=== PATIENT | female | born 1975 ===

== ENCOUNTER 2019-02-22 07:34 | Outpatient (CLI) | payer BC | END 2019-02-22 23:59 | disposition home or self-care (01) | LOC: ROC 07:34 | PROVIDERS: ATTEND Radiology Radiation Oncology | DX: D35.2 Benign neoplasm of pituitary gland (principal) | CPT/HCPCS: 99204; G0463 ==

== ENCOUNTER 2019-03-06 09:23 | Outpatient (CLI) | payer BC | END 2019-03-06 23:59 | disposition home or self-care (01) | LOC: CFH 09:23 | PROVIDERS: ATTEND Radiology Radiation Oncology | DX: D35.2 Benign neoplasm of pituitary gland (principal) | CPT/HCPCS: 70553; A9585 ==

== ENCOUNTER → 2020-08-05 | Outpatient (CLI) | payer BC | END | disposition home or self-care (01) | LOC: ROC 07:33 | PROVIDERS: ATTEND Radiology Radiation Oncology | DX: D35.2 Benign neoplasm of pituitary gland (principal) | CPT/HCPCS: 99212; G0463 ==